=== PATIENT | female | born 1970 | race Caucasian/White ===

== ENCOUNTER 2018-10-15 10:53 | Emergency (ER) | payer OTHER ==
[~2018-10-15] VITALS: Ht 165.1 cm; Wt 54.4 kg
[~2018-10-15 10:53] MED LIST: FEXO1TAB8 PO
[2018-10-15 11:16] VITALS: BP_SYST 112
[2018-10-15] MEDS ORDERED: PROCHLORPERAZINE EDISYLATE 10 MG/2 ML VIAL IM ONE (11:45)
[2018-10-15] MEDS ORDERED: KETOROLAC TROMETHAMINE 60 MG/2 ML VIAL IM ONE (11:45)
[2018-10-15 13:26] VITALS: BP_SYST 105
== END 2018-10-15 13:26 | disposition home or self-care (01) ==
LOC: SED 10:53
DX: G44.209 Tension-type headache, unspecified, not intractable (principal); H57.10 Ocular pain, unspecified eye; R50.9 Fever, unspecified; Z90.89 Acquired absence of other organs; Z88.2 Allergy status to sulfonamides; Z88.6 Allergy status to analgesic agent; Z88.8 Allergy status to other drugs, medicaments and biological substances
CPT/HCPCS: 70450; 81025; 96372; 99284; J0780; J1885

== ENCOUNTER 2018-10-22 14:18 | Emergency (ER) | payer OTHER ==
[~2018-10-22] VITALS: Ht 165.1 cm; Wt 54.4 kg
[2018-10-22 14:22] VITALS: BP_SYST 120
[2018-10-22] MEDS ORDERED: KETOROLAC TROMETHAMINE 60 MG/2 ML VIAL IM ONE (16:57)
[2018-10-22 19:55] LABS: CLARITY/URINE CLEAR (CLEAR); COLOR,URINE YELLOW (YELLOW); PH,URINE 5.5 (5.0-8.0)
[2018-10-22 19:56] LABS: BILIRUBIN,URINE NEGATIVE (NEGATIVE); BLOOD, URINE TRACE (NEGATIVE); GLUCOSE,URINE NEGATIVE (NEGATIVE); KETONES,URINE NEGATIVE (NEGATIVE); LEUKOCYTE ESTERASE ,URINE NEGATIVE (NEGATIVE); NITRITE, URINE NEGATIVE (NEGATIVE); PROTEIN URINE NEGATIVE (NEGATIVE); UROBILINOGEN,URINE 0.2 (0.2-1.0)
[2018-10-22 19:57] LABS: BACTERIA,URINE RARE /HPF (None Seen); RBC,URINE 0-3 /HPF (0-3); WBC,URINE 0-3 /HPF (0-3)
[2018-10-22 19:58] LABS: MUCUS,URINE None Seen /LPF (None Seen)
== END 2018-10-22 17:12 | disposition home or self-care (01) ==
LOC: SED 14:18
DX: S39.012A Strain of muscle, fascia and tendon of lower back, initial encounter (principal); Z90.89 Acquired absence of other organs; Z88.2 Allergy status to sulfonamides; Z88.6 Allergy status to analgesic agent; Z88.8 Allergy status to other drugs, medicaments and biological substances; X58.XXXA Exposure to other specified factors, initial encounter; Y93.89 Activity, other specified; Y92.89 Other specified places as the place of occurrence of the external cause; Y99.8 Other external cause status
CPT/HCPCS: 81000; 81025; 99283; J1885